=== PATIENT | female | born 1995 | race Caucasian/White ===

== ENCOUNTER 2018-12-31 19:08 | Emergency (ER) | payer OTHER ==
[~2018-12-31] VITALS: Ht 165.1 cm; Wt 92.5 kg
[2018-12-31 19:14] VITALS: BP 149/80
--- NOTE | 2018-12-31 19:19 | NUR ---
PT AMBULATED TO BED 4
--- NOTE | 2018-12-31 19:20 | NUR ---
23Y FEMALE PRESENTED TO ED C/O HEADACHE/LIGHTHEADEDNESS AND SENSITIVITY TO LIGHT [id number]. PT ALSO REPORTED HEADACHE ASSOCIATED WITH NAUSEA WITH PAIN RADIATING TO BACK OF NECK. DENIES VOMITING/BLURRY VISION. PT REPORTS TAKING TYLENOL FOR PAIN. AAOX4, RR EVEN UNLABORED, GCS 15. OLMAN GEIGER MADE AWARE, WILL CONTINUE TO MONITOR CLOSELY.
[2018-12-31 20:11] LABS: BASOPHILS # (AUTO) 0.1 K/uL (0.00-0.22); BASOPHILS % (AUTO) 0.7 % (0.0-2.0); EOSINOPHILS # (AUTO) 0.5 K/uL (0-0.4); EOSINOPHILS % (AUTO) 4.1 % (0.0-4.0); HEMOGLOBIN 10.5 g/dL (12.0-16.0); LYMPHOCYTES % (AUTO) 26.3 % (20.5-51.1); MEAN CORPUSCULAR HEMOGLOBIN 21 pg (27-31); MEAN CORPUSCULAR HGB CONC 32 g/dL (33-37); MEAN CORPUSCULAR VOLUME 65.5 fL (80-94); MONOCYTES # (AUTO) 0.7 K/uL (0.8-1.0); MONOCYTES % (AUTO) 5.9 % (1.7-9.3); NEUTROPHILS # (AUTO) 7.1 K/uL (1.8-7.7); PLATELET COUNT (AUTO) 345 K/uL (140-450); RED BLOOD CELL COUNT(AUTO) 5.04 MIL/uL (4.20-5.40); RED CELL DISTRIBUTION WIDTH 15.8 % (11.6-13.7); WHITE BLOOD COUNT (AUTO) 11.3 K/uL (4.8-10.8)
[2018-12-31 20:17] LABS: APPEARANCE,URINE CLEAR (CLEAR); BILIRUBIN,URINE NEGATIVE (NEGATIVE); BLOOD, URINE 1+ (NEGATIVE); COLOR,URINE YELLOW (YELLOW); LEUKOCYTE ESTERASE ,URINE NEGATIVE (NEGATIVE); NITRITE, URINE NEGATIVE (NEGATIVE); UGLUCOSE NEGATIVE (NEGATIVE)
[2018-12-31 20:19] LABS: CARBON DIOXIDE 25.7 mmol/L (21-32); CREATININE 0.8 mg/dL (0.6-1.3); POTASSIUM 3.7 mmol/L (3.5-5.1)
[2018-12-31 20:25] LABS: ALBUMIN 3.8 g/dL (3.4-5.0); TOTAL BILIRUBIN 0.4 mg/dL (0.0-1.0)
[2018-12-31 20:28] LABS: WBC,URINE NONE SEEN /HPF (0-5)
[2018-12-31 20:42] VITALS: BP 140/78
--- NOTE | 2018-12-31 20:42 | NUR ---
Patient discharged with v/s stable. Written and verbal after care instructions given and explained. Patient alert, oriented and verbalized understanding of instructions. Carried with steady gait. All questions addressed prior to discharge. ID band removed. Patient advised to follow up with PMD. Rx of FERROUS SULFATE 200MG AND NAPROXEN 375MG given. Patient educated on indication of medication including possible reaction and side effect. PT EDUCATED REGARDING GOOD HYDRATION AND GOOD FOOD CHOICES. Opportunity to ask questions provided and answered.
== END 2018-12-31 20:42 | disposition home or self-care (01) ==
LOC: MED 19:08
DX: G44.209 Tension-type headache, unspecified, not intractable (principal); D64.9 Anemia, unspecified
CPT/HCPCS: 36415; 80053; 81001; 81025; 85025; 99283

== ENCOUNTER 2019-02-27 20:12 | Emergency (ER) | payer OTHER ==
[~2019-02-27] VITALS: Ht 165.1 cm; Wt 93.0 kg
[2019-02-27 20:25] VITALS: BP 131/76
--- NOTE | 2019-02-27 20:33 | NUR ---
PT TRIAGED, SENT BACK TO LOBBY AWAITING FOR BED
--- NOTE | 2019-02-27 20:41 | NUR ---
PT AMBULATED TO BED 2
--- NOTE | 2019-02-27 20:45 | NUR ---
24 Y/O F PRESENTS TO ER C/O BURNING SENSATION TO UPPER ABDOMINAL QUADRANTS AFTER EATING. PER PT, EVERYTIME SHE EATS SHE FEELS A BURNING SENSATION. PT TRIED CHANGING DIET, AND AVOIDS SPICY FOODS, BUT STILL HAS BURNING SENSATION WHILE EATING. 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 PAIN LEVEL 3/10, BURNING. DENIES NAUSEA AT THIS TIME. DENIES V/D. HOB ELEVATED, BED IN LOWEST POSITION, SIDE RAIL UP X1. ALLERGIES: NKA MED HX: NONE
--- NOTE | 2019-02-27 21:30 | NUR ---
PT SITTING IN BED ON CELL PHONE. WILL CONTINUE TO MONITOR.
[2019-02-27 22:07] LABS: APPEARANCE,URINE CLEAR (CLEAR); BILIRUBIN,URINE NEGATIVE (NEGATIVE); BLOOD, URINE TRACE-L (NEGATIVE); COLOR,URINE YELLOW (YELLOW); LEUKOCYTE ESTERASE ,URINE TRACE (NEGATIVE); NITRITE, URINE NEGATIVE (NEGATIVE); UGLUCOSE NEGATIVE (NEGATIVE)
[2019-02-27 22:15] LABS: RBC,URINE 0-5 /HPF (0-5)
[2019-02-27 22:29] VITALS: BP 131/76
--- NOTE | 2019-02-27 22:29 | NUR ---
Patient discharged by Dr. Gale. Written and verbal after care instructions given and explained. Patient alert, oriented and verbalized understanding of instructions. Ambulatory with steady gait. All questions addressed prior to discharge. ID band removed. Patient advised to follow up with PMD. Rx of Ciprofloxacin 500mg was given. Patient educated on indication of medication including possible reaction and side effects. Opportunity to ask questions provided and answered.
== END 2019-02-27 22:29 | disposition home or self-care (01) ==
LOC: MED 20:12
DX: N39.0 Urinary tract infection, site not specified (principal); Z90.49 Acquired absence of other specified parts of digestive tract
CPT/HCPCS: 81001; 81025; 87086; 99283